=== PATIENT | female | born 1975 | race Caucasian/White ===

== ENCOUNTER 2016-08-12 12:50 | Observation (INO) | payer OTHER ==
[~2016-08-12] VITALS: Ht 170.2 cm; Wt 62.6 kg
[2016-08-12 13:59] LABS: HEMOGLOBIN 14.3 gm/dl (12.3-15.3); RED BLOOD COUNT 4.76 M/UL (4.00-5.10); WHITE BLOOD COUNT 12.5 K/UL (4.5-11.0)
[2016-08-12 14:17] LABS: BUN/CREATININE RATIO 10 (0-10)
[2016-08-13 05:30] LABS: WHITE BLOOD COUNT 11.5 K/UL (4.5-11.0)
[2016-08-13 05:39] LABS: HEMOGLOBIN 11.9 gm/dl (12.3-15.3); RED BLOOD COUNT 3.98 M/UL (4.00-5.10)
[2016-08-13 05:48] LABS: BUN/CREATININE RATIO 9 (0-10)
[2016-08-14 08:06] LABS: HEMOGLOBIN 12.6 gm/dl (12.3-15.3); RED BLOOD COUNT 4.19 M/UL (4.00-5.10)
[2016-08-14 08:07] LABS: WHITE BLOOD COUNT 7.1 K/UL (4.5-11.0)
[2016-08-14 08:08] LABS: BUN/CREATININE RATIO 12 (0-10)
[2016-08-14] MEDS ORDERED: FLAGYL500 MG PO (12:19)
[2016-08-14] MEDS ORDERED: LEVAQUIN500 MG PO (12:19)
== END 2016-08-14 11:34 | disposition home or self-care (01) ==
LOC: ER1 12:50 → M/S 18:06 → ZEROF 18:06 → M/S 20:30
PROVIDERS: Emergency Medicine; ADMIT Internal Medicine
DX: K52.9 Noninfective gastroenteritis and colitis, unspecified (principal); D72.829 Elevated white blood cell count, unspecified; F17.210 Nicotine dependence, cigarettes, uncomplicated; Z88.0 Allergy status to penicillin; Z88.5 Allergy status to narcotic agent; Z90.710 Acquired absence of both cervix and uterus; Z98.890 Other specified postprocedural states
CPT/HCPCS: 36415; 80053; 81001; 83690; 83735; 84703; 85025; 85027; 87040; 87086; 96374; 96375; 96376; 99285; G0378; J1956; J2270; J2405; J7030; J7050; Q9962

== ENCOUNTER 2020-06-10 14:23 | Emergency (ER) | payer OTHER ==
[~2020-06-10 14:23] MED LIST: CIPRO500 MG PO; FLAGYL500 MG PO; LEVAQUIN500 MG PO; NORCO 7.5-3251 EACH PO; ZOFRAN4 MG PO
[2020-06-10 20:05] LABS: HEMOGLOBIN 14.8 gm/dl (12.3-15.3); RED BLOOD COUNT 4.78 M/UL (4.00-5.10)
[2020-06-10 20:23] LABS: BUN/CREATININE RATIO 16 (0-10)
[2020-06-10] MEDS ORDERED: NAPROSYN500 MG PO (23:28)
[2020-06-10] MEDS ORDERED: ONDANSETRON ODT4 MG SL (23:28)
[2020-06-27] MEDS ORDERED: COLLAGEN PO (15:39)
[2020-06-27] MEDS ORDERED: PROBIOTIC1 EACH PO (15:40)
[2020-06-27] MEDS ORDERED: MULTIVITAMIN LIQUID PO (15:40)
== END 2020-06-11 00:08 | disposition home or self-care (01) ==
LOC: ER1 14:23
PROVIDERS: Physician Assistant
DX: R10.31 Right lower quadrant pain (principal); R31.29 Other microscopic hematuria; Z90.710 Acquired absence of both cervix and uterus; Z88.2 Allergy status to sulfonamides; F17.210 Nicotine dependence, cigarettes, uncomplicated
CPT/HCPCS: 80053; 81001; 83690; 85025; 96374; 96375; 99284; J1885; J2405; J7030; Q9967

== ENCOUNTER → 2020-07-01 | Day surgery (SDC) | payer OTHER ==
[~2020-07-01] MED LIST changes: +COLLAGEN PO; +MULTIVITAMIN LIQUID PO; +NAPROSYN500 MG PO; +ONDANSETRON ODT4 MG SL; +PROBIOTIC1 EACH PO
== END | disposition home or self-care (01) ==
LOC: OR 12:01
DX: R31.29 Other microscopic hematuria (principal); R10.2 Pelvic and perineal pain; F17.210 Nicotine dependence, cigarettes, uncomplicated; Z88.5 Allergy status to narcotic agent; Z88.0 Allergy status to penicillin; Z88.2 Allergy status to sulfonamides; Z79.899 Other long term (current) drug therapy
CPT/HCPCS: J7040

== ENCOUNTER → 2021-04-29 | Outpatient (CLI) | payer OTHER | LOC: KOH-I 13:30 | DX: E04.9 Nontoxic goiter, unspecified (principal) | CPT/HCPCS: 76536 ==